=== PATIENT | male | born 1970 | race Caucasian/White ===

== ENCOUNTER 2017-09-29 10:15 | Emergency (ER) | payer BC ==
[~2017-09-29] VITALS: Ht 175.3 cm; Wt 99.8 kg
[~2017-09-29 10:15] MED LIST: GEMFIBROZIL600 MG PO; LOSARTAN POTAS100 MG PO; LOVASTATIN40 MG PO
[2017-09-29] MEDS ORDERED: LISINOPRIL10 MG PO (10:44)
[2017-09-29] MEDS ORDERED: ATORVASTATIN CA20 MG PO (10:44)
[2017-09-29] MEDS ORDERED: METOPROLOL SUC200 MG PO (10:44)
[2017-09-29] MEDS ORDERED: ALLOPURINOL300 MG PO (10:44)
[2017-09-29] MEDS ORDERED: ADVIL PM CAPLE1 EACH PO (10:44)
[2017-09-29] MEDS ORDERED: ASPIR 8181 MG PO (10:44)
[2017-09-29] MEDS ORDERED: TETANUS/DIPHTHERIA TOX ADULT 0.5 ML SYR IM ONE (10:45)
[2017-09-29] MEDS ORDERED: IBUPROFEN 400 MG TAB PO ONE (10:45)
--- NOTE | 2017-09-29 11:46 | Diagnostic Imaging Report ---
PROCEDURE:X-RAY LEFT TOES, MINIMUM TWO VIEWS COMPARISON:None. INDICATIONS:CRUSHED LEFT GREAT TOE FINDINGS: BONES:Normal mineralization. No acute displaced fracture or dislocation. No lytic or blastic lesion. Joint spaces are preserved. SOFT TISSUES:Soft tissue swelling in the first toe. OTHER:Negative. CONCLUSION:Soft tissues in the first toe. No underlying acute displaced fracture or dislocation. Marlon Cuello M.D. Dictated by: Marlon Cuello M.D. on 09/29/2017 at 11:54 Electronically approved by: Marlon Cuello M.D. on 09/29/2017 at 11:54
[2017-09-29] MEDS ORDERED: ULTRAM 50MG50 MG PO (11:47)
[2017-09-29] MEDS ORDERED: CLONIDINE HCL 0.1 MG TAB PO NR (12:00)
[2017-09-29 12:44] VITALS: BP 196/132
== END 2017-09-29 12:50 | disposition home or self-care (01) ==
LOC: ER 10:15
DX: S97.112A Crushing injury of left great toe, initial encounter (principal); S90.412A Abrasion, left great toe, initial encounter; I10 Essential (primary) hypertension; W22.8XXA Striking against or struck by other objects, initial encounter; Y92.39 Other specified sports and athletic area as the place of occurrence of the external cause; Z23 Encounter for immunization
CPT/HCPCS: 90714; 99283